=== PATIENT | male | born 1965 | race Caucasian/White ===

== ENCOUNTER 2020-12-01 08:21 | Emergency (ER) | payer OTHER ==
[2020-12-01 08:53] LABS: Urine Blood 2+ (Negative); Urine Glucose Negative (Negative); Urine Protein Trace (Negative); Urine Specific Gravity 1.015 (1.005-1.030); Urine pH 5.5 (5.0-7.0)
--- NOTE | 2020-12-01 09:07 | RAD REPORT ---
EXAM DESCRIPTION: CT - Stone Protocol - 12/01/2020 8:53 am CLINICAL HISTORY: Flank pain. flank pain, hx of stones COMPARISON: CT ABDOMEN W WO dated 10/06/2014 TECHNIQUE: Axial images were obtained without oral or IV contrast. Lack of contrast limits solid org an and vascular assessment. The [id number] spans the entirety of the system partially obscuring uppermost abdomen and lung bases. Coronal reformatted images were obtained and reviewed. All CT scans are performed using dose optimization technique as appropriate and may include automated exposure control or mA/KV adjustment according to patient size. FINDINGS: The lower lung johnson are clear. 16 mm cyst is present in the anterior right lobe of the liver. No aggressive liver lesion or biliary dilatation. Postsurgical changes about the stomach seen. Cholecystectomy clips noted. The spleen, rg creas and adrenal glands are normal. No pathologic lymphadenopathy in the abdomen or pelvis. 6 mm stone is present in the proximal right ureter resulting in moderate right hydronephrosis. Additi onal caliceal stones are present in both kidneys. No bowel obstruction, free air, free fluid or abscess. Normal appendix noted.Sigmoid diverticulosis c doyle is present without diverticulitis. Duplicated IVC incidentally noted. No significant bony abnormality. IMPRESSION: 6 mm stone is present in the proximal right ureter resulting in moderate right hydroneph rosis. Additional punctate bilateral caliceal nephrolithiasis.
[2020-12-01] MEDS ORDERED: ONDANSETRON 4 MG/2 ML VIAL ONE (09:13)
[2020-12-01] MEDS ORDERED: KETOROLAC 30 MG/ML INJ ONE (09:13)
[2020-12-01] MEDS ORDERED: NA CHLORIDE 0.9% 1,000 ML ONE (09:13)
[2020-12-01 09:14] LABS: Urine Bacteria <20 /HPF (NONE SEEN)
[2020-12-01 09:22] LABS: Absolute Lymphocytes (CBC) 1.1 K/uL (0.7-4.9); Basophils % 0.3 % (0-1.3); Hematocrit 44.1 % (39.6-49.0); Lymphocytes % 9.5 % (15.3-44.8); RBC Red Blood Cell Count 4.61 M/uL (4.33-5.43)
[2020-12-01 09:30] LABS: Albumin 3.5 g/dL (3.4-5.0); Bilirubin Direct 0.2 mg/dL (0-0.2); Bilirubin Total 0.8 mg/dL (0.2-1.0); Potassium 4.2 mmol/L (3.5-5.1); Protein, Total 6.9 g/dL (6.4-8.2)
[2020-12-01] MEDS ORDERED: MAGNESIUM SULFATE 1 gm IVPB 1 GM/100 ML BAG IV ONE (09:52)
[2020-12-01] MEDS ORDERED: TAMSULOSIN 0.4 MG SR CAP ONE (09:52)
[2020-12-01] MEDS ORDERED: CEFTRIAXONE/SWI 1gm 1 GM/10 ML SYR ONE (09:52)
[2020-12-01] MEDS ORDERED: HYDROMORPHONE HCL 0.5 MG/0.5 ML INJ ONE (10:29)
--- NOTE | 2020-12-01 10:29 | ER ---
Nurse's Notes [facility] Name: Faisal Warner Age: 55 yrs Sex: Male : 1965 Arrival Date: 12/01/2020 Time: 08:24 Bed 4 Private MD: Reba Perez K Diagnosis: Calculus of kidney with calculus of ureter-right Presentation: 12/01 08:36 Chief complaint: Patient states: R flank pain that began 4-5 days ago. Pt has a history ss of kidney stones and feels that this is another one. Despite ibuprofen and drinking water, the stone seems "hung up". Coronavirus screen: Client denies travel out of the [place] in the last 14 days. Ebola Screen: Patient denies exposure to infectious person. Patient denies travel to an Ebola-affected area in the 21 days before illness onset. Initial Sepsis Screen: Does the patient meet any 2 criteria? No. Patient's initial sepsis screen is negative. Does the patient have a suspected source of infection? No. Patient's initial sepsis screen is negative. Risk Assessment: Do you want to hurt yourself or someone else? Patient reports no desire to harm self or others. Onset of symptoms was November 27, 2020. 08:36 Method Of Arrival: Ambulatory ss 08:36 Acuity: TIAGO 3 ss Historical: - Allergies: 08:37 No Known Allergies; ss - Home Meds: 08:37 None [Active]; ss - PMHx: 08:37 Kidney stone; ss - PSHx: 08:37 Gastric Sleeve; ss - Immunization history:: Adult Immunizations up to date. - Social history:: Smoking status: Patient denies any tobacco usage or history of. Screenin:00 Abuse screen: Denies threats or abuse. Nutritional screening: No deficits noted. aa5 Tuberculosis screening: No symptoms or risk factors identified. Fall Risk None identified. Assessment: 08:50 General: Appears comfortable, Behavior is calm, cooperative. Pain: Complains of pain in aa5 right flank Pain currently is 6 out of 10 on a pain scale. Quality of pain is described as sharp, shooting, Is continuous. Neuro: Level of Consciousness is awake, alert, obeys commands, Oriented to person, place, time, situation. Cardiovascular: Patient's skin is warm and dry. Respiratory: Airway is patent Respiratory effort is even, unlabored, Respiratory pattern is regular, symmetrical. GI: Abdomen is round Bowel sounds present X 4 quads. Abd is soft and non tender X 4 quads. : No signs and/or symptoms were reported regarding the genitourinary system. EENT: No signs and/or symptoms were reported regarding the EENT system. Derm: Skin is pink, warm \\T\\ dry. Musculoskeletal: Range of motion: intact in all extremities. 08:59 Reassessment: Pt back from CT scan. aa5 09:30 Reassessment: Patient is alert, oriented x 3, equal unlabored respirations, skin aa5 warm/dry/pink. Patient states feeling better. Patient states symptoms have improved. 10:14 Reassessment: Patient appears in no apparent distress at this time. No changes from hb previously documented assessment. Patient and/or family updated on plan of care and expected duration. Pain level reassessed. 10:30 Reassessment: Patient is alert, oriented x 3, equal unlabored respirations, skin aa5 warm/dry/pink. Patient denies pain at this time. Patient states feeling better. Patient states symptoms have improved. Pt tolerated cup of water well, PA was notified. . 11:12 Reassessment: Patient is alert, oriented x 3, equal unlabored respirations, skin aa5 warm/dry/pink. Vital Signs: 08:36 BP 123 / 80; Pulse 50; Resp 16; Temp 97.8(TE); Pulse Ox 100% ; Weight 83.91 kg; Height ss 5 ft. 6 in. (167.64 cm); Pain 6/10; 10:16 BP 111 / 71; Pulse 54; Resp 15; Pulse Ox 98% on R/A; hb 08:36 Body Mass Index 29.86 (83.91 kg, 167.64 cm) ED Course: 08:24 Patient arrived in ED. as 08:24 Reba Perez MD is Private Physician. as 08:37 Triage completed. ss 08:37 Arm band placed on right wrist. ss 08:39 Lloyd Saavedra PA is PHCP. cp 08:39 Wilmar Zambrano MD is Attending Physician. cp 08:44 Maribeth Albarran, VITO is Primary Nurse. aa5 08:50 Patient has correct armband on for positive identification. Placed in gown. Bed in low aa5 position. Call light in reach. Side rails up X 1. Pulse ox on. NIBP on. 08:53 CT Stone Protocol In Process Unspecified. EDMS 09:00 Inserted saline lock: 20 gauge in right antecubital area, using aseptic technique. aa5 Blood collected. 10:27 Julito Pereira MD is Referral Physician. cp 11:12 No provider procedures requiring assistance completed. IV discontinued, intact, aa5 bleeding controlled, No redness/swelling at site. Pressure dressing applied. Administered Medications: 09:02 Drug: NS 0.9% 1000 ml Route: IV; Rate: 1 bolus; Site: right antecubital; aa5 10:00 Follow up: IV Status: Completed infusion; IV Intake: 1000ml aa5 09:02 Drug: Ketorolac 15 mg Route: IVP; Site: right antecubital; aa5 09:12 Follow up: Response: No adverse reaction aa5 09:02 Drug: Zofran (Ondansetron) 4 mg Route: IVP; Site: right antecubital; aa5 09:12 Follow up: Response: No adverse reaction aa5 09:32 Drug: Rocephin (cefTRIAXone) 1 grams Route: IV; Rate: calculated rate; Site: right aa5 antecubital; 09:35 Follow up: Response: No adverse reaction aa5 09:35 Drug: Magnesium Sulfate 1 grams Route: IVPB; Infused Over: 1 hrs; Site: right aa5 antecubital; 10:35 Follow up: Response: No adverse reaction; IV Status: Completed infusion aa5 09:35 Drug: Flomax (tamsulosin) 0.4 mg Route: PO; aa5 10:10 Follow up: Response: No adverse reaction aa5 10:10 Drug: Dilaudid (HYDROmorphone) 0.5 mg Route: IVP; Site: right antecubital; aa5 10:30 Follow up: Response: No adverse reaction; Pain is decreased aa5 Intake: 10:00 IV: 1000ml; Total: 1000ml. aa5 Outcome: 10:29 Discharge ordered by . cp 11:12 Discharged to home ambulatory, with friend. aa5 11:12 Condition: improved 11:12 Discharge instructions given to patient, Instructed on discharge instructions, follow up and referral plans. medication usage, Demonstrated understanding of instructions, follow-up care, medications, Prescriptions given X 4. 11:16 Patient left the ED. aa5 Signatures: Dispatcher [employer] EDMS Starr Velez Audri, RN RN aa5 Mickie Mccoy RN RN ss Lloyd Saavedra PA PA Anjana Castaneda RN RN Corrections: (The following items were deleted from the chart) 09:35 09:35 Rocephin (cefTRIAXone) 1 grams IV at calculated rate in right antecubital aa5 aa5
--- NOTE | 2020-12-01 10:29 | EDPHYS ---
Physician Documentation [facility] Name: Faisal Warner Age: 55 yrs Sex: Male : 1965 Arrival Date: 12/01/2020 Time: 08:24 Bed 4 Private MD: Reba Perez K ED Physician Wilmar Zambrano HPI: 12/01 08:45 This 55 yrs old Male presents to ER via Ambulatory with complaints of cp Possible Kidney Stone. 08:45 The patient complains of pain in the right flank. cp 08:45 The pain radiates to the abdomen. Onset: The symptoms/episode began/occurred 5 day(s) cp ago. Associated signs and symptoms: Pertinent positives: nausea, Pertinent negatives: diarrhea, dysuria, fever, pain radiating to the lower extremities, vomiting. The patient has experienced similar episodes in the past, today's symptoms are similar, to when the patient was apparently diagnosed with kidney stone. Historical: - Allergies: 08:37 No Known Allergies; ss - Home Meds: 08:37 None [Active]; ss - PMHx: 08:37 Kidney stone; ss - PSHx: 08:37 Gastric Sleeve; ss - Immunization history:: Adult Immunizations up to date. - Social history:: Smoking status: Patient denies any tobacco usage or history of. ROS: 08:50 Constitutional: Negative for body aches, chills, fever, poor PO intake. cp 08:50 Eyes: Negative for injury, pain, redness, and discharge. cp 08:50 ENT: Negative for ear pain, sore throat, difficulty swallowing, difficulty handling secretions. 08:50 Cardiovascular: Negative for chest pain. 08:50 Respiratory: Negative for cough, shortness of breath, wheezing. 08:50 Abdomen/GI: Positive for abdominal pain, nausea, Negative for vomiting, diarrhea, constipation, black/tarry stool, rectal bleeding. 08:50 Back: Positive for flank pain, on the right. 08:50 : Negative for urinary symptoms, testicular pain 08:50 Skin: Negative for cellulitis, rash. 08:50 Neuro: Negative for altered mental status, dizziness, weakness. 08:50 All other systems are negative. Exam: 08:55 Constitutional: The patient appears in no acute distress, alert, awake, non-toxic, well cp developed, well nourished, uncomfortable. 08:55 Head/Face: Normocephalic, atraumatic. cp 08:55 Eyes: Periorbital structures: appear normal, Conjunctiva: normal, no exudate, no injection, Sclera: no appreciated abnormality, Lids and lashes: appear normal, bilaterally. 08:55 ENT: External ear(s): are unremarkable, Nose: is normal, Mouth: Lips: moist, Oral mucosa: moist, Posterior pharynx: Airway: no evidence of obstruction, patent. 08:55 Neck: ROM/movement: is normal, is supple, without pain, no range of motions limitations. 08:55 Chest/axilla: Inspection: normal, Palpation: is normal, no crepitus, no tenderness. 08:55 Cardiovascular: Rate: bradycardic, Rhythm: regular, Edema: is not appreciated, JVD: is not appreciated. 08:55 Respiratory: the patient does not display signs of respiratory distress, Respirations: normal, no use of accessory muscles, no retractions, labored breathing, is not present, Breath sounds: are clear throughout, no decreased breath sounds. 08:55 Abdomen/GI: Inspection: abdomen appears normal, Bowel sounds: active, all quadrants, Palpation: soft, in all quadrants, mild abdominal tenderness, in the anterior aspect of right lateral abdomen, posterior aspect of right lateral abdomen and right upper quadrant, rebound tenderness, is not appreciated, involuntary guarding, is not appreciated. 08:55 Back: pain, that is moderate, of the right mid back, ROM is normal. 08:55 Skin: no rash present. 08:55 Neuro: Orientation: to person, place \T\ time. Mentation: is normal, Motor: moves all fours, strength is normal, Sensation: is normal, Gait: is steady, at a normal pace, without difficulty. Vital Signs: 08:36 BP 123 / 80; Pulse 50; Resp 16; Temp 97.8(TE); Pulse Ox 100% ; Weight 83.91 kg; Height ss 5 ft. 6 in. (167.64 cm); Pain 6/10; 10:16 BP 111 / 71; Pulse 54; Resp 15; Pulse Ox 98% on R/A; hb 08:36 Body Mass Index 29.86 (83.91 kg, 167.64 cm) ss MDM: 08:43 Patient medically screened. cp 09:00 Differential diagnosis: nephrolithiasis, pyelonephritis, UTI, colitis, appendicitis. cp 10:29 Data reviewed: vital signs, nurses notes, lab test result(s), radiologic studies, CT cp scan. 10:29 Counseling: I had a detailed discussion with the patient and/or guardian regarding: the cp historical points, exam findings, and any diagnostic results supporting the discharge/admit diagnosis, lab results, radiology results, the need for outpatient follow up, a urologist, to return to the emergency department if symptoms worsen or persist or if there are any questions or concerns that arise at home. Response to treatment: the patient's symptoms have markedly improved after treatment, VSS. Pain and nausea markedly improved. Patient appears non-toxic. Will discharge to home for continued monitoring. 10:34 ED course: no results found on [place] [facility] [place] prescription monitor program website. cp 12/01 08:39 Order name: Basic Metabolic Panel; Complete Time: 09:44 cp 12/01 09:44 Interpretation: Normal except: CL 111; BUN 20; CRE 1.70; GFR 42. cp 12/01 08:39 Order name: CBC with Diff; Complete Time: 09:44 cp 12/01 08:39 Order name: Hepatic Function; Complete Time: 09:44 cp 12/01 08:39 Order name: Lipase; Complete Time: 09:44 cp 12/01 08:39 Order name: Urine Microscopic Only; Complete Time: 09:23 cp 12/01 09:23 Interpretation: Abnormal: URBC 10-20. cp 12/01 08:53 Order name: Urine Dipstick-Ancillary [facility] 12/01 08:28 Order name: CT Stone Protocol; Complete Time: 09:08 rn 12/01 08:53 Order name: Urine Dipstick-Ancillary; Complete Time: 09:08 EDOH 12/01 09:08 Interpretation: Normal except: UBLD 2+; UPROT Trace. cp 12/01 08:39 Order name: IV Saline Lock; Complete Time: 08:49 cp 12/01 08:39 Order name: Labs collected and sent; Complete Time: 08:49 cp 12/01 08:39 Order name: Urine Dipstick-Ancillary (obtain specimen); Complete Time: 09:01 cp 12/01 10:03 Order name: PO challenge; Complete Time: 10:30 cp Administered Medications: 09:02 Drug: NS 0.9% 1000 ml Route: IV; Rate: 1 bolus; Site: right antecubital; aa5 10:00 Follow up: IV Status: Completed infusion; IV Intake: 1000ml aa5 09:02 Drug: Ketorolac 15 mg Route: IVP; Site: right antecubital; aa5 09:12 Follow up: Response: No adverse reaction aa5 09:02 Drug: Zofran (Ondansetron) 4 mg Route: IVP; Site: right antecubital; aa5 09:12 Follow up: Response: No adverse reaction aa5 09:32 Drug: Rocephin (cefTRIAXone) 1 grams Route: IV; Rate: calculated rate; Site: right aa5 antecubital; 09:35 Follow up: Response: No adverse reaction aa5 09:35 Drug: Magnesium Sulfate 1 grams Route: IVPB; Infused Over: 1 hrs; Site: right aa5 antecubital; 10:35 Follow up: Response: No adverse reaction; IV Status: Completed infusion aa5 09:35 Drug: Flomax (tamsulosin) 0.4 mg Route: PO; aa5 10:10 Follow up: Response: No adverse reaction aa5 10:10 Drug: Dilaudid (HYDROmorphone) 0.5 mg Route: IVP; Site: right antecubital; aa5 10:30 Follow up: Response: No adverse reaction; Pain is decreased aa5 Disposition: 13:25 Co-signature as Attending Physician, Wilmar Zambrano MD. rn Disposition Summary: 12/01/20 10:29 Discharge Ordered Location: Home cp Problem: new cp Symptoms: have improved cp Condition: Stable cp Diagnosis - Calculus of kidney with calculus of ureter - right cp Followup: cp - With: Julito Pereira MD - When: 2 - 3 days - Reason: Recheck today's complaints Discharge Instructions: - Discharge Summary Sheet cp - Kidney Stones cp - Renal Colic cp Forms: - Medication Reconciliation Form cp - Thank You Letter cp - Antibiotic Education cp - Prescription Opioid Use cp Prescriptions: - Ultracet 37.5-325 mg Oral Tablet - take 1 tablet by ORAL route every 6 hours - for up to 5 days; do not exceed 8 cp tablets per day.; 20 tablet; Refills: 0, Product Selection Permitted - Flomax 0.4 mg Oral capsule - take 1 capsule by ORAL route once daily As needed 1/2 hour following the same cp meal each day; 7 capsule; Refills: 0, Product Selection Permitted - Cephalexin 500 mg Oral Capsule - take 1 capsule by ORAL route every 8 hours for 7 days; 21 capsule; Refills: 0, cp Product Selection Permitted - Zofran 4 mg Oral Tablet - take 1 tablet by ORAL route every 12 hours As needed; 20 tablet; Refills: 0, cp Product Selection Permitted Signatures: Dispatcher [employer] Wilmar Cabral MD MD rn Calderon, Audri RN RN aa5 Mickie Mccoy RN RN ss Lloyd Saavedra, PA PA cp
[2020-12-02 09:17] VITALS: TEMP 97.8
[2020-12-02 09:19] VITALS: BP 111/71; O2SAT 98
== END 2020-12-01 11:16 | disposition home or self-care (01) ==
LOC: ER 08:21
DX: N20.2 Calculus of kidney with calculus of ureter (principal); Z87.442 Personal history of urinary calculi
CPT/HCPCS: 96365; 96361; 85025; 80048; 36415; 80076; 83690; 76377; 74176; 96375; 99284; J3475; J1170; J0696; J7030; J2405; 81003; 81015